=== PATIENT | male | born 1990 | race Caucasian/White ===

== ENCOUNTER 2018-04-29 22:14 | Inpatient (IN) ==
[2018-04-30] MEDS ORDERED: PANTOPRAZOLE 40 MG VIAL IV STA (00:16)
[2018-04-30] MEDS ORDERED: ALUM/MAG/SIMETH/LIDO VISC 1:1 30 ML BOTTLE PO STA (00:16)
[2018-04-30] MEDS ORDERED: HYDROmorphone 2 MG/1 ML VIAL IV STA (00:16)
[2018-04-30] MEDS ORDERED: KETOROLAC 30 MG/1 ML VIAL IV STA (00:16)
[2018-04-30] MEDS ORDERED: ONDANSETRON 4 MG/2 ML VIAL IV STA (00:16)
[2018-04-30] MEDS ORDERED: SODIUM CHLORIDE 0.9% 500 ML IV STA (00:16)
[2018-04-30 00:40] LABS: Basophils % 0.3 % (0.0-0.8); Eosinophils # 0.1 10*3/uL (0.0-0.87); Eosinophils % 0.7 % (0.00-10.9); Hematocrit 42.3 VOL% (42.0-52.0); Hemoglobin 14.3 GM/DL (14.0-18.0); Immature Granulocytes % 0.3 %; Immature Granulocytes Absolute 0.03 #; Lymphocytes # 3.6 10*3/uL (1.4-4.0); Lymphocytes % 30.5 % (21.2-54.2); Mean Corpuscular HGB Conc 33.8 GM/DL (32-36); Mean Corpuscular Hemoglobin 29 PG (27-34); Mean Corpuscular Volume 86.7 FL (87-102); Mean Platelet Volume 9.8 FL (9.6-12.0); Monocytes # 1.2 10*3/uL (0.11-0.8); Monocytes % 9.9 % (1.7-12.7); Neutrophils # 6.9 10*3/uL (1.4-7.4); Neutrophils % 58.3 % (38.7-73.9); Platelet Count 246 T/CUMM (130-400); Red Blood Count 4.88 MC/CUMM (3.8-5.5); Red Cell Distribution Width 12.3 % (9.3-17.3); White Blood Count 11.8 T/CUMM (4-12)
[2018-04-30 00:51] LABS: Alanine Aminotransferase 34 U/L (16-61); Albumin 4.1 G/DL (3.4-5.0); Alkaline Phosphatase 127 U/L (45-117); Amylase 43 U/L (25-115); Aspartate Amino Transferase 6 U/L (0-37); Bilirubin,Total < 0.39 MG/DL (0.2-1.0); Blood Urea Nitrogen 16 MG/DL (7-18); Calcium 9.2 MG/DL (8.5-10.1); Glucose 94 MG/DL (74-106); Osmolality,Calculated 279.4 MOS/KG (273-304); Potassium 3.6 MMOL/L (3.5-5.1); Sodium 140 MMOL/L (136-145)
[2018-04-30] MEDS ORDERED: ACETAMINOPHEN 325 MG TABLET PO PRN (02:08)
[2018-04-30] MEDS: CIPROFLOXACIN INJ 400 MG in PREMIX 1 EACH IV SCH ×2 (02:58→14:30)
[2018-04-30] MEDS: SODIUM CHLORIDE 0.9% 1,000 ML IV SCH ×3 (02:58→23:15)
[2018-04-30 05:14] LABS: Basophils % 0.4 % (0.0-0.8); Eosinophils # 0.1 10*3/uL (0.0-0.87); Eosinophils % 1.1 % (0.00-10.9); Hematocrit 38.1 VOL% (42.0-52.0); Hemoglobin 12.4 GM/DL (14.0-18.0); Immature Granulocytes % 0.2 %; Immature Granulocytes Absolute 0.02 #; Lymphocytes # 3.3 10*3/uL (1.4-4.0); Lymphocytes % 40.6 % (21.2-54.2); Mean Corpuscular HGB Conc 32.5 GM/DL (32-36); Mean Corpuscular Hemoglobin 29 PG (27-34); Mean Corpuscular Volume 87.6 FL (87-102); Mean Platelet Volume 9.8 FL (9.6-12.0); Monocytes # 0.8 10*3/uL (0.11-0.8); Monocytes % 9.9 % (1.7-12.7); Neutrophils # 3.8 10*3/uL (1.4-7.4); Neutrophils % 47.8 % (38.7-73.9); Platelet Count 216 T/CUMM (130-400); Red Blood Count 4.35 MC/CUMM (3.8-5.5); Red Cell Distribution Width 12.4 % (9.3-17.3); White Blood Count 8.1 T/CUMM (4-12)
[2018-04-30 05:36] LABS: Albumin 3.3 G/DL (3.4-5.0); Bilirubin,Total 0.8 MG/DL (0.2-1.0); Calcium 8.4 MG/DL (8.5-10.1); Osmolality,Calculated 279.4 MOS/KG (273-304); Potassium 3.9 MMOL/L (3.5-5.1); Total Protein 6.8 G/DL (6.4-8.3)
[2018-04-30 05:44] LABS: Apearance,Urine CLEAR (Clear); Bilirubin,Urine Negative (Negative); Blood, Urine Negative (Negative); Glucose,Urine (UA) Negative (Negative); Hyaline Casts,Urine 1 /LPF (0-3); Ketones,Urine Negative (Negative); Mucus,Urine Few /LPF (Occasional); Nitrite,Urine Negative (Negative); Protein,Urine Negative; RBC,Urine 3 /HPF (0-4); Squamous Epithelial Cell,Urine Occasional /HPF (0-10); Urine Color Yellow (Yellow); Urine Specific Gravity 1.016 (1.001-1.035); Urine Urobilinogen < 2.0 EU/DL (0.2-1.0); WBC,Urine 1 /HPF (0-6)
[2018-04-30] MEDS: HYDROmorphone 2 MG/1 ML VIAL IV PRN ×3 (06:25→19:57)
[2018-04-30] MEDS: ONDANSETRON 4 MG/2 ML VIAL IV PRN ×3 (06:25→19:58)
[2018-04-30] MEDS: PANTOPRAZOLE 40 MG VIAL IV SCH (10:00)
[2018-05-01] MEDS: HYDROmorphone 2 MG/1 ML VIAL IV PRN ×6 (00:21→10:45)
[2018-05-01] MEDS: SODIUM CHLORIDE 0.9% 1,000 ML IV SCH ×2 (02:36→09:07)
[2018-05-01] MEDS: CIPROFLOXACIN INJ 400 MG in PREMIX 1 EACH IV SCH (03:30)
[2018-05-01] MEDS: ONDANSETRON 4 MG/2 ML VIAL IV PRN ×2 (04:00→12:09)
[2018-05-01] MEDS ORDERED: CLINDAMYCIN INJ 900 MG in PREMIX 1 EACH IV ONE (06:48)
[2018-05-01] MEDS ORDERED: ENOXAPARIN 40 MG/0.4 ML SYRINGE SUBCUT SCH (07:00)
[2018-05-01] MEDS ORDERED: LIDOCAINE 1%/EPI INJ 20 ML VIAL ONE (08:04)
[2018-05-01] MEDS ORDERED: TISSUE ADHESIVE 1 EACH APPLICATOR TOP ONE (08:04)
[2018-05-01] MEDS: PANTOPRAZOLE 40 MG VIAL IV SCH (09:07)
[2018-05-01] MEDS ORDERED: MIDAZOLAM 2 MG/2 ML VIAL ONE (09:54)
[2018-05-01] MEDS ORDERED: PROPOFOL 200 MG/20 ML VIAL IV ONE (09:54)
[2018-05-01] MEDS ORDERED: GLYCOPYRROLATE 0.4 MG/2 ML VIAL ONE (09:54)
[2018-05-01] MEDS ORDERED: fentaNYL 100 MCG/2 ML VIAL ONE (09:54)
[2018-05-01] MEDS ORDERED: ONDANSETRON 4 MG/2 ML VIAL ONE ×2 (09:54→10:08)
[2018-05-01] MEDS ORDERED: SEVOFLURANE 1 UNIT/15 MINUTE INH ONE (09:54)
[2018-05-01] MEDS ORDERED: DEXAMETHASONE 10 MG/1 ML VIAL ONE (09:54)
[2018-05-01] MEDS ORDERED: ROCURONIUM 100 MG/10 ML VIAL IV ONE (09:55)
[2018-05-01] MEDS ORDERED: SUCCINYLCHOLINE 200 MG/10 ML VIAL ONE (09:55)
[2018-05-01] MEDS ORDERED: NEOSTIGMINE 10 MG/10 ML VIAL ONE (09:55)
[2018-05-01] MEDS ORDERED: HYDROmorphone 2 MG/1 ML VIAL ONE (10:08)
[2018-05-01] MEDS ORDERED: ONDANSETRON 4 MG/2 ML VIAL IV PRN (10:10)
[2018-05-01 12:26] VITALS: BP 123/71
== END 2018-05-01 13:45 | disposition home or self-care (01) | DRG 419 ==
LOC: N.ED 22:14 → N.3E 04-30 01:43
PROVIDERS: ADMIT Surgery; ATTEND Surgery
PROC: LAPCHOL (2018-05-01 08:59)